=== PATIENT | female | born 1965 | race Caucasian/White ===

== ENCOUNTER 2017-07-06 13:42 | Inpatient (IN) | payer SELFPAY ==
--- NOTE | 2017-07-06 14:33 | CT ---
CT BRAIN: 07/06/2017 PROVIDED CLINICAL HISTORY: Right arm numbness. Right facial numbness. Headache. Expressive aphasia. COMPARISON: None. FINDINGS: The ventricular system appears normal in size and morphology. There is no evidence for intracranial hemorrhage or mass effect. Age indeterminate lacunar infarction involving the left caudate head. Th e extracranial soft tissues and osseous structures demonstrate no acute findings. Small area of ecch ymosis involving the right high parietal region. IMPRESSION: 1. No evidence for intracranial hemorrhage or mass effect. 2. Age indeterminate lacunar infarction involving the left caudate head. POS: [facility]
[2017-07-06 14:46] LABS: ALT (SGPT) 14 U/L (8-55); AST (SGOT) 11 U/L (5-34); Albumin 4.3 g/dL (3.5-5.0); Alkaline Phosphatase 63 U/L (40-150); Anion Gap 10 mmol/L (10-20); BUN (Urea Nitrogen) 17 mg/dL (9.8-20.1); Bilirubin, Total 0.4 mg/dL (0.2-1.2); CK (CPK) 36 U/L (29-168); Calc. Creatinine Clearance 0 mL/min (70-130); Calcium 9.5 mg/dL (7.8-10.44); Carbon Dioxide 24 mmol/L (22-29); Chloride 108 mmol/L (98-107); Estimated GFR-MDRD Greater than 90; Globulin 2.7 g/dL (2.4-3.5); Glucose 171 mg/dL (70-105); Potassium 3.9 mmol/L (3.5-5.1); Sodium 138 mmol/L (136-145)
[2017-07-06 14:50] LABS: CKMB 0.7 ng/mL (0-6.6); Troponin I Less than 0.010 ng/mL (< 0.028)
[2017-07-06 15:14] LABS: Bilirubin Negative (Negative); Blood, Urine Large (Negative); Clarity CLEAR (Clear); Glucose, Urine (Dipstick) Negative (Negative); Leukocyte Negative (Negative); Nitrite Negative (Negative); Protein, Urine (Dipstick) Negative (Neg-Trace); Specific Gravity, Urine 1.021 (1.002-1.036); Urobilinogen 0.2 mg/dL (0.2-1.0)
[2017-07-06 15:23] LABS: Bacteria/HPF None Seen HPF (None Seen); Hyaline Casts/LPF NONE SEEN LPF (0-3 Hyaline); RBC/HPF 21-50 HPF (0-3); Squamous Epithelial 0-3 HPF (0-3); WBC/HPF 0-3 HPF (0-3)
[2017-07-06 15:28] LABS: Amphetamine Not Detected (NotDetected); Barbiturates Screen Not Detected (NotDetected); Benzodiazepine Screen Not Detected (NotDetected); Cocaine Metabolite Screen Not Detected (NotDetected); Medtox Control Line Valid? VALID (VALID); Medtox Reader # READER 1; Methadone Not Detected (NotDetected); Methamphetamine Not Detected (NotDetected); Opiate Screen Not Detected (NotDetected); Oxycodone Screen Not Detected (NotDetected); Phencyclidine (PCP) Not Detected (NotDetected); THC/Cannabinoid Screen Not Detected (NotDetected); Tricyclic Screen Not Detected (NotDetected)
[2017-07-06 15:50] LABS: Prothrombin Time 12.8 SEC (12.0-14.7)
[2017-07-06] MEDS ORDERED: Aspirin 325 MG TAB ONE (16:01)
[2017-07-06 16:38] LABS: #Basophils 0.1 thou/uL (0.0-0.2); #Eosinphils 0.2 thou/uL (0.0-0.7); #Lymphocytes 2.6 thou/uL (1.20-3.40); #Monocytes 0.5 thou/uL (0.11-0.59); #Neutrophils 5.7 thou/uL (1.40-6.50); %Basophils 0.7 % (0.0-1.0); %Eosinophils 2.4 % (0.0-10.0); %Lymphocytes 28.3 % (21.0-51.0); %Monocytes 5.2 % (0.0-10.0); %Neutrophils 63.4 % (42.0-75.0); Hemoglobin 14.2 g/dL (12.0-16.0); Mean Corpuscular HGB CONC 32.4 g/dL (32.0-36.0); Mean Corpuscular Hemoglobin 27.7 pg (27.0-31.0); Mean Corpuscular Volume 85.5 fl (81.0-99.0); Platelet Count 315 thou/uL (130-400); Red Blood Cell (RBC) Count 5.12 mill/uL (4.20-5.40)
[2017-07-06] MEDS ORDERED: Ondansetron HCl/PF 4 MG/2 ML Vial IVP PRN ×2 (17:49→17:58)
[2017-07-06] MEDS ORDERED: Acetaminophen 325 MG TAB PO PRN ×2 (17:49→17:58)
[2017-07-06] MEDS ORDERED: Ondansetron ODT 4 MG TAB SL PRN (17:49)
[2017-07-06] MEDS ORDERED: Bisacodyl 5 MG TAB PO PRN (17:58)
[2017-07-06] MEDS ORDERED: HumaLOG 300 UNITS/3 ML VIAL SC PRN (17:58)
[2017-07-06] MEDS ORDERED: Mag-Al 1200 mg/1200 mg/30 ML UDCUP PO PRN (17:58)
[2017-07-06] MEDS ORDERED: Senokot 8.6 MG TAB PO PRN (17:58)
[2017-07-06] MEDS ORDERED: Dextrose 5% in Water 1,000 ML IV PRN (17:58)
[2017-07-06] MEDS ORDERED: Dextrose 50% Abboject 50 ML SYRINGE SLOW IVP PRN (17:58)
[2017-07-06] MEDS ORDERED: hydrALAZINE 20 MG/ML VIAL SLOW IVP PRN (17:58)
[2017-07-06] MEDS ORDERED: Calcium Carbonate 500 MG ChewTAB PO PRN (17:58)
[2017-07-06 18:09] VITALS: BMI 33.7
--- NOTE | 2017-07-06 19:21 | ULT ---
BILATERAL CAROTID DUPLEX ULTRASOUND INCLUDING COLOR AND SPECTRAL DOPPLER IMAGIN07/06/17 HISTORY: 52-year-old female with doctor's order indicating CVA, followup right arm numbness, right facial numb ness, headache and expressive aphasia. There is bilateral visual plaque in the distal CCAs and particularly the left proximal ICA. PSV right ICA 73 cm/s. EDV 29 cm/s. ICA/CCA ratio of 0.9. PSV left ICA 63 cm/s. EDV 30 cm/s. ICA/CCA ratio of 0.6. Vertebral flow is antegrade. IMPRESSION: Visual plaque bilaterally, evidence for carotid artery arteriovascular disease. No hemodynamically si gnificant stenosis. POS: [facility]
[2017-07-06] MEDS: Atorvastatin Calcium 20 MG TAB PO SCH (20:43)
[2017-07-07 06:03] LABS: Eosinophils 2 % (0-10); Lymphocytes 31 % (21-51); MDiff Complete? YES; Mean Corpuscular HGB CONC 33.3 g/dL (32.0-36.0); Mean Corpuscular Hemoglobin 27.4 pg (27.0-31.0); Mean Corpuscular Volume 82.4 fl (81.0-99.0); Mean Platelet Volume 6.3 fL (7.4-10.4); Monocytes 5 % (0-10); Neutrophil 58 % (42-75); Platelet Count 296 thou/uL (130-400); RBC Distribution Width 11.8 % (11.5-14.5); Reactive Lymphocytes 4 % (0-10); Red Blood Cell (RBC) Count 4.75 mill/uL (4.20-5.40); White Blood Cell (WBC) Count 8.1 thou/uL (4.8-10.8)
[2017-07-07 06:07] LABS: Cardiac Risk 4.3 (Less than 4.5)
[2017-07-07 06:07] LABS: Anion Gap 11 mmol/L (10-20); BUN (Urea Nitrogen) 14 mg/dL (9.8-20.1); Calc. Creatinine Clearance 159 mL/min (70-130); Carbon Dioxide 24 mmol/L (22-29); Chloride 106 mmol/L (98-107); Estimated GFR-MDRD Greater than 90; Glucose 161 mg/dL (70-105); Potassium 3.9 mmol/L (3.5-5.1); Sodium 137 mmol/L (136-145)
[2017-07-07] MEDS: HumaLOG 300 UNITS/3 ML VIAL SC PRN ×2 (06:48→12:45)
--- NOTE | 2017-07-07 07:54 | HP ---
PRIMARY CARE PHYSICIAN: Sofia Beasley M.D. CHIEF COMPLAINT: Difficulty with her speech as well as weakness of the hand with numbness and tingli ng. HISTORY OF PRESENTING ILLNESS: Ms. Beauchamp is a very pleasant 52-year-old female with past me dical history of hypertension and diabetes non-insulin dependent, who presented to the emergency room with above-mentioned complaint. History is mainly obtained with the patient herself. Electronic ct dical records have been reviewed. According to Ms. Beauchamp, she has been having symptoms of right hand weakness, numbness and tingling for the last 4 days. She sought care with a chiropractor yesterday which did not help. She thinks that symptoms might have actually gotten worse. She also started to have difficulty finding words since yesterday morning. She thought it would get better, but when it did not; she presented to the ER tod ay. She did take her fiance's aspirin for the last 2 days. Normally, she is not on a daily dose of aspirin. She does take fish oil and nyfe-[id number] CholestOff supplement. She has not been diagno sed with high cholesterol. She denies any weakness of her right forearm or upper arm. She denies an y leg weakness. She denies any difficulty with swallowing. She denies any slurred speech. She rebel es any vision changes. She denies any other recent illnesses otherwise. Upon presentation to the emergency room, she was hemodynamically stable. Her workup included a CT sc an which was unremarkable as well as a 12-lead EKG. Her lab examination did not have any specific ab normality. Her blood sugar is 171. Cardiac enzyme is unremarkable. Urinalysis does showed large bl ood and RBC. Urine drug screen is negative. She is now being admitted to stroke floor for further w orkup. She is now being admitted to stroke floor for further workup and CVA. PAST MEDICAL HISTORY: Hypertension, diabetes non-insulin dependent type 2. PAST SURGICAL HISTORY: None. SOCIAL HISTORY: She is a former smoker, quit more than 10 years ago. No history of drug or alcohol abuse. She is currently engaged and works at [employer] as well as at the [employer]. FAMILY HISTORY: Both of her grandparents had lung cancer, but they were smokers as well. She denies any history of heart attacks or stroke in her family. ALLERGIES: No known medication allergies. CURRENT MEDICATIONS: Lisinopril 20 mg daily, glipizide 5 mg daily, cranberry 500 mg b.i.d., B comple x daily, fish oil 1200 mg daily, iron 325 mg daily, CholestOff 450 mg b.i.d. REVIEW OF SYSTEMS: The following complete review of systems was negative, unless otherwise mentioned in the HPI or below: Constitutional: Weight loss or gain, ability to conduct usual activities. Skin: Rash, itching. Eyes: Double vision, pain. ENT/Mouth: Nose bleeding, neck stiffness, pain, tenderness. Cardiovascular: Palpitations, dyspnea on exertion, orthopnea. Respiratory: Shortness of breath, wheezing, cough, hemoptysis, fever or night sweats. Gastrointestinal: Poor appetite, abdominal pain, heartburn, nausea, vomiting, constipation, or diarr hea. Genitourinary: Urgency, frequency, dysuria, nocturia. Musculoskeletal: Pain, swelling. Neurologic/Psychiatric: Anxiety, depression. Allergy/Immunologic: Skin rash, bleeding tendency. She is still having some word finding difficulty, but reports that it is better than yesterday. Her right hand still seems weak that she is not able to oppose her index finger and thumb and is not able to hold anything properly in her hand. Other than that, it is negative. LABORATORY DATA: CBC is pending at this time. PT, PTT, INR are unremarkable. Serum chemistry shows chloride at 108, blood sugar 171, otherwise unremarkable. CK-MB and troponin normal. Urine drug sc reen normal. Urinalysis shows blood, otherwise unremarkable. CT scan of the brain by my review has no acute intracranial abnormality. She has age indeterminate lacunar infarction involving the left c audate head. PHYSICAL EXAMINATION: VITAL SIGNS: Blood pressure 135/91, pulse of 82, respirations 20, saturating 97% on room air, and te mperature 98.7. GENERAL: No acute distress, awake, alert, oriented x3. She is having trouble finding the words and often is using a different word as she cannot find the right where she is wanting to choose. She is also mixing up her words and has to think a long time before speaking. Otherwise, no acute distress, awake, alert, oriented x3. HEENT: Mucous membrane is moist and pink. No oropharyngeal exudate or erythema. Head is normocepha lic and atraumatic. Pupils are equal, reactive to light and accommodation. Extraocular movement int act. NECK: Supple without any lymphadenopathy, JVD or bruit. CHEST: Clear to auscultation without any wheezing, rales or rhonchi. Rhythm is regular without any murmur, rubs or gallops. ABDOMEN: Soft, nontender, nondistended, positive bowel sounds. EXTREMITIES: Free of any cyanosis, clubbing, or edema. NEUROLOGIC: Her muscle strength in bilateral lower extremities, left arm, forearm and hand is 5/5. Her right hand muscle strength is definitively diminished. She is not able to hold the paper in her hand and it falls easily. It is mainly affecting the opposing action of the thumb and index finger. Her forearm and arm has 5/5 muscle strength in the right arm. She has no cranial nerve deficits. N o sensory deficits. No dysdiadochokinesia. Gait is not checked, but the patient denies any balance issues. SKIN: Free of any rashes or bruises. Feels warm and dry. PSYCHIATRIC: Normal affect. IMPRESSION AND PLAN: 1. Acute cerebrovascular accident. The patient's symptoms are quite consistent with acute cerebrova scular accident with expressive aphasia and right hand weakness. She does have history of hypertensi on and diabetes. At this time, she will be admitted to stroke floor and we will consult Neurology fo r further recommendations. As she does not take any aspirin at home on a regular basis, we will star t her on low dose of aspirin along with statin for now. Check lipid panel and have stroke team evalu ate her including occupational therapist as well as speech therapist. We will also obtain an MRI as well as transthoracic echocardiogram and carotid ultrasound to rule out any occlusions. Also, there is a small possibility that she might have carotid arterial dissection with the chiropractor manipula tion, but her symptoms are not severe enough and are longstanding enough starting before manipulation making this possibility less likely. Nevertheless, she will be admitted on telemetry unit. Frequen t neuro checks will be instituted. 2. History of diabetes mellitus. We will restart her glipizide and add insulin sliding scale, mild . Frequent Accu-Cheks. 3. Hypertension. Restart her lisinopril, but avoid extreme lowering of the blood pressure. We will allow for permissive hypertension. 4. Add deep venous thrombosis and gastrointestinal prophylaxis. DISPOSITION: Ms. Beauchamp is currently being admitted to the hospital for workup of cerebrovascular acci dent. Estimated length of stay at this time is less than two midnights as her symptoms are receding. Further management will depend upon her clinical course.
[2017-07-07] MEDS ORDERED: VITAMIN B COMPLEX PO SCH (09:00)
[2017-07-07] MEDS ORDERED: Lisinopril 20 MG TAB PO SCH ×2 (09:00)
[2017-07-07] MEDS ORDERED: FISH OIL PO SCH (09:00)
[2017-07-07] MEDS ORDERED: Non-Formulary Item 1 EACH (Ferrous Sulfate [Iron] 325 MG) PO SCH (09:00)
[2017-07-07] MEDS ORDERED: EPA PO SCH (09:00)
[2017-07-07] MEDS ORDERED: [UNRECOGNIZED DRUG - REMARK] PO SCH (09:00)
[2017-07-07] MEDS ORDERED: Fish Oil 1,000 MG CAP PO SCH (09:00)
[2017-07-07] MEDS ORDERED: DHA PO SCH (09:00)
[2017-07-07] MEDS: Aspirin 81 mg Enteric Coated Tablet PO SCH (09:06)
[2017-07-07] MEDS: Fish Oil 1,000 MG CAP PO SCH (10:13)
[2017-07-07] MEDS: Ferrous Sulfate 325 MG TAB PO SCH (10:13)
[2017-07-07] MEDS: Stress 600 With Zinc 1 TAB PO SCH (10:15)
[2017-07-07] MEDS: Lisinopril 20 MG TAB PO SCH (10:21)
--- NOTE | 2017-07-07 10:35 | MRI ---
MRI BRAIN WITHOUT CONTRAST: INDICATIONS: TIA. Right arm numbness. Right facial numbness. CORRELATION: CT from 07/06/2017. TECHNIQUE: Multiplanar, multisequential imaging of the brain obtained. FINDINGS: The ventricles have normal size and position. There is abnormal restricted diffusion in the insular cortex on the left, with foci of restricted dif fusion in the left basal ganglia and involving the head of the caudate. There is also a focus of restricted diffusion involving the left parietal cortex, posteriorly, and th ere are numerous small foci of restricted diffusion seen involving the left frontal and parietal jan ex, on both sides of the central sulcus. This primarily appears to involve the precentral gyrus. Th janell numerous foci of restricted diffusion are all within the left middle cerebral artery distribution . There is associated gliosis seen in these regions, best appreciated in the insular cortex, the left b doug ganglia, and the caudate, on the left, and there is early gliosis seen in the precentral gyrus a nd in the left parietal lobe cortex. No evidence of hemorrhage. The intracranial internal carotid arteries show normal flow voids. The proximal middle cerebral etelvina jerson show flow voids, although a lesion in the left M1 segment cannot be excluded on this study. The basilar artery does show a flow void. IMPRESSION: Acute/subacute infarcts involving the left cerebral hemisphere, as described above. The infarcts are in a left middle cerebral artery distribution. POS: [facility]
--- NOTE | 2017-07-07 13:22 | PDOC.PN ---
- Subjective Encounter Start Date: 07/07/17 Encounter Start Time: 13:20 Subjective: still having word finding difficulty and R hand weakness - Objective MAR Reviewed: Yes Vital Signs & Weight: Vital Signs (12 hours) Temp Pulse Pulse Pulse Resp BP BP 07/07/17 11:15 98 F 91 20 07/07/17 10:40 79 80 140/82 150/80 H 07/07/17 08:00 98.0 F 70 16 07/07/17 07:35 98.0 F 70 16 07/07/17 07:20 79 80 116/80 132/82 07/07/17 05:37 98.3 F 79 18 BP Pulse Ox 07/07/17 11:15 171/108 H 98 07/07/17 10:40 07/07/17 08:00 98 07/07/17 07:35 107/65 98 07/07/17 07:20 07/07/17 05:37 117/67 97 Weight Admit Weight 203 lb Weight 203 lb I&O: 07/06/17 07/07/17 07/08/17 06:59 06:59 06:59 Intake Total 480 Balance 480 Result Diagrams: 07/07/17 05:43 07/07/17 03:30 Additional Labs: Accuchecks 07/07/17 07/06/17 07/06/17 11:09 20:40 18:05 POC Glucose 286 H 179 H 92 Radiology Reviewed by me: Yes (MRI-multiple L MCA territory foci of infarctions) Phys Exam - Physical Examination Constitutional: NAD HEENT: PERRLA, moist MMs, sclera anicteric, TM's clear, oral pharynx no lesions , 2+ tonsils Neck: no nodes, no JVD, supple, full ROM Respiratory: no wheezing, no rales, no rhonchi, clear to auscultation bilateral Cardiovascular: RRR, no significant murmur, no rub, gallop Gastrointestinal: soft, non-tender, no distention, positive bowel sounds Musculoskeletal: no edema, pulses present Neurological: normal sensation, moves all 4 limbs expressive aphasia and R hand weakness same as last night Psychiatric: normal affect, A&O x 3 Skin: no rash, normal turgor, cap refill <2 seconds Dx/Plan (1) Acute CVA (cerebrovascular accident) Code(s): I63.9 - CEREBRAL INFARCTION, UNSPECIFIED Status: Acute (2) DM2 (diabetes mellitus, type 2) Status: Chronic (3) HTN (hypertension) Code(s): I10 - ESSENTIAL (PRIMARY) HYPERTENSION Status: Chronic - Plan PT/OT, speech therapy, DVT proph w/SCDs cont ASA,statin.ECHO & neurology recs pending -: cont ISS.monitor BP. on lisinopril. -: avoid rapid lowering of BP * . Review of Systems - Review of Systems Constitutional: negative: fever, chills, sweats, weakness, malaise, other Eyes: negative: Pain, Vision Change, Conjunctivae Inflammation, Eyelid Inflammation, Redness, Other ENT: negative: Ear Pain, Ear Discharge, Nose Pain, Nose Discharge, Nose Congestion, Mouth Pain, Mouth Swelling, Throat Pain, Throat Swelling, Other Respiratory: negative: Cough, Dry, Shortness of Breath, Hemoptysis, SOB with Excertion, Pleuritic Pain, Sputum, Wheezing Cardiovascular: negative: chest pain, palpitations, orthopnea, paroxysmal nocturnal dyspnea, edema, light headedness, other Gastrointestinal: negative: Nausea, Vomiting, Abdominal Pain, Diarrhea, Constipation, Melena, Hematochezia, Other Genitourinary: negative: Dysuria, Frequency, Incontinence, Hematuria, Retention , Other Musculoskeletal: negative: Neck Pain, Shoulder Pain, Arm Pain, Back Pain, Hand Pain, Leg Pain, Foot Pain, Other Skin: negative: Rash, Lesions, Girish, Bruising, Other Neurological: Weakness, Change in Speech - Medications/Allergies Allergies/Adverse Reactions: Allergies Allergy/AdvReac Type Severity Reaction Status Date / Time No Known Allergies Allergy Verified 07/06/17 18:11 Medications: Current Medications Acetaminophen (Tylenol) 650 mg PO Q4H PRN PRN Reason: Headache/Fever or Pain Al Hydroxide/Mg Hydroxide (Maalox) 30 ml PO Q6H PRN PRN Reason: Heartburn or Indigestion Aspirin (Ecotrin) 81 mg PO DAILY [facility] Last Admin: 07/07/17 09:06 Dose: 81 mg Atorvastatin Calcium (Lipitor) 20 mg PO HS [facility] Last Admin: 07/06/17 20:43 Dose: 20 mg Bisacodyl (Dulcolax) 10 mg PO DAILYPRN PRN PRN Reason: Constipation Calcium Carbonate (Tums) 1,000 mg PO Q4H PRN PRN Reason: Heartburn or Indigestion Dextrose/Water (Dextrose 50%) 25 gm SLOW IVP PRN PRN PRN Reason: Hypoglycemia Ferrous Sulfate (Feosol) 325 mg PO DAILY [facility] Last Admin: 07/07/17 10:13 Dose: 325 mg Fish Oil (Fish Oil) 1,000 mg PO DAILY [facility] Last Admin: 07/07/17 10:13 Dose: 1,000 mg Glipizide (Glucotrol Xl) 5 mg PO QPM [facility] Last Admin: 07/06/17 20:43 Dose: 5 mg Glucagon (Glucagon) 1 mg IM PRN PRN PRN Reason: Hypoglycemia Hydralazine HCl (Apresoline) 10 mg SLOW IVP Q4H PRN PRN Reason: BP > 180/90 Dextrose/Water (D5w) 1,000 mls @ 0 mls/hr IV .Q0M PRN; As Directed PRN Reason: Hypoglycemia Insulin Human Lispro (Humalog) 0 units SC .MILD SLIDING SCALE PRN PRN Reason: Mild Correctional Scale Last Admin: 07/07/17 12:45 Dose: 4 unit Insulin Human Lispro (Humalog) 0 units SC .BEDTIME SLIDING SC PRN PRN Reason: Bedtime Correctional Scale Lisinopril (Zestril) 20 mg PO DAILY [facility] Last Admin: 07/07/17 10:21 Dose: Not Given Multivitamins/Zinc (Stress 600 With Zinc) 1 tab PO DAILY [facility] Last Admin: 07/07/17 10:15 Dose: 1 tab (Cranberry Fruit Extract [Cranberry] 500 Mg) 500 mg PO BID [facility] Non-Formulary Medication (Plant Stanol Es [Cholest Off]) 450 mg PO DAILY [facility] Ondansetron HCl (Zofran) 4 mg IVP Q6H PRN PRN Reason: Nausea/Vomiting Senna (Senokot) 2 tab PO HSPRN PRN PRN Reason: Constipation Sodium Chloride (Flush - Normal Saline) 10 ml IVF PRN PRN PRN Reason: Saline Flush
[2017-07-07] MEDS ORDERED: ISOVUE-370 76%-LOCM 1 ML ONE (15:01)
[2017-07-07] MEDS: Atorvastatin Calcium 20 MG TAB PO SCH (20:16)
--- NOTE | 2017-07-07 20:28 | CT ---
CT ANGIO OF NECK WITH CONTRAST: 07/07/17 Multiple axial tomograms obtained through the neck with IV enhancement and arterial phase following a [facility] protocol with multiplanar reconstruction and 3D postprocessing. INDICATIONS: Left cerebral hemisphere stroke. FINDINGS: No evidence of atherosclerotic disease or stenosis at the origin of the arch vessels. The right common carotid artery is unremarkable with no significant atherosclerotic change. The carot id bifurcation on the right is unremarkable. The right ICA is mildly tortuous but no significant athe rosclerotic disease or stenosis identified. The intracranial right internal carotid artery is patent with no focal stenosis seen through the cavernous segment. The left common carotid is patent with no evidence of significant stenosis or atherosclerotic disease . The left carotid bifurcation is patent with no significant atherosclerotic disease. The left wedding planning internship al carotid artery is patent with no evidence of significant stenosis. The intracranial left internal carotid artery appears patent through the cavernous portion. The vertebral arteries are patent and symmetric. The visualized basilar artery is unremarkable. IMPRESSION: No evidence of significant extracranial carotid artery stenosis. POS: [facility]
[2017-07-07 20:40] LABS: Prothrombin Time 13.8 SEC (12.0-14.7)
[2017-07-07 20:46] LABS: PTT 32.4 SEC (22.9-36.1)
[2017-07-08] MEDS: Ferrous Sulfate 325 MG TAB PO SCH (08:37)
[2017-07-08] MEDS: Aspirin 81 mg Enteric Coated Tablet PO SCH (08:37)
[2017-07-08] MEDS: Lisinopril 20 MG TAB PO SCH (08:37)
[2017-07-08] MEDS: Fish Oil 1,000 MG CAP PO SCH (08:37)
[2017-07-08] MEDS: Stress 600 With Zinc 1 TAB PO SCH (08:42)
--- NOTE | 2017-07-08 09:48 | CON ---
DATE OF CONSULTATION: 07/07/2017 REFERRING PROVIDER: Ria Del Castillo MD REASON FOR CONSULTATION: Expressive aphasia. HISTORY OF PRESENT ILLNESS: Ms. Beauchamp is a pleasant 52-year-old female, who has been consul rosemarie for evaluation of expressive aphasia. Her fiance was at bedside. She reports that about 3-4 day s ago, she had noticed numbness and heaviness in her right upper extremity, which she chalked it up a s being slipped on a wrong way. She did not seek any medical attention at that time. She noted that on Wednesday while talking, she was having some difficulty with getting her words out. She was having difficulty with expressing herself. She felt that it was just a brain fog that she had in the past a nd did not again seek any medical attention. Today, she noted significant difficulty with talking an d speech, which prompted her to present to her primary care physician on yesterday, who prompted her to go to the emergency room. She currently denies any headache, chest pain, palpitation, vision alcantar ges, diplopia, ptosis, difficulty with balance. She does have numbness on the right perioral and per iorbital region, as well as some numbness in the right arm. PAST MEDICAL HISTORY: Significant for hypertension and diabetes. PAST SURGICAL HISTORY: None significant. SOCIAL HISTORY: She is a former smoker, quit more than 10 years ago. She denies alcohol use. She d enies illicit drug use. She is currently engaged and currently employed at [employer]. FAMILY HISTORY: Significant for lung cancer in both grandparents. CURRENT MEDICATIONS: Please review MAR. ALLERGIES: No known drug allergies. REVIEW OF SYSTEMS: As mentioned in above HPI, otherwise negative. PHYSICAL EXAMINATION: VITAL SIGNS: Blood pressure of 132/79, pulse of 77, temperature of 98.1, respirations of 16, O2 sats 98% on room air. GENERAL: Well-developed, well-nourished female in no apparent distress. RESPIRATORY: Clear to auscultation bilaterally. CARDIOVASCULAR: Regular rate and rhythm. NEUROLOGIC: Mental status: The patient is awake, alert, oriented x3. Speech and language, moderate expressive aphasia noted. Cranial nerves: Pupils are 3 mm and reactive. Visual miramontes are intact. Extraocular muscles are intact. No nystagmus is noted. Face is symmetric. Tongue and uvula are m idline. Motor exam showed normal tone and bulk with a 5/5 strength in both upper and lower extremiti es. Sensory: Sensation is intact and symmetric. Deep tendon reflexes, 2+ reflexes in both upper an d lower extremities. Babinski: Plantar responses flexion bilaterally. Coordination is intact to fi [id number] and finger tapping bilaterally. LABORATORY DATA: Reviewed, which included CBC, coag panel, CMP, lipid profile, urinalysis, and urine drug screen, which is significant for glucose of 286, total cholesterol 156, LDL of 100, HDL of 36, and triglycerides of 102, otherwise unremarkable. IMAGING STUDIES: MRI brain without contrast was reviewed, which showed acute left MCA distribution i schemic infarct. Carotid Doppler results were reviewed, which showed visualized plaque bilaterally w ithout any hemodynamically significant stenosis. IMPRESSION: 1. Left middle cerebral artery distribution ischemic infarct. 2. Carotid artery stenosis. 3. Hypertension. 4. Diabetes. 5. Expressive aphasia converted to #1. ASSESSMENT AND PLAN: Ms. Beauchamp is a pleasant 52-year-old female, who presented with 4-day h istory of expressive aphasia. She was found to have acute to subacute left middle cerebral artery di stribution ischemic infarct. I have reviewed her carotid Doppler results, which showed plaques on angelic th sides without any hemodynamically significant stenosis. I will recommend obtaining CT angiogram o f the neck for further evaluation. I will recommend starting her on Plavix 75 mg daily for secondary stroke prevention. I will also obtain hypercoagulation panel. I will also recommend obtaining green sesophageal echocardiogram. If the transthoracic echocardiogram is normal, she will need outpatient speech therapy. Once the workup is done, she is okay to be discharged from my standpoint. Thank you for the consultation.
--- NOTE | 2017-07-08 13:30 | PDOC.PN ---
- Subjective Encounter Start Date: 07/08/17 Encounter Start Time: 13:28 Subjective: much better today.speech has impoved.no muscle weakness - Objective MAR Reviewed: Yes Vital Signs & Weight: Vital Signs (12 hours) Temp Pulse Resp BP Pulse Ox 07/08/17 12:15 98.1 F 109 H 16 133/84 98 07/08/17 08:30 97.7 F 70 15 07/08/17 07:07 97.7 F 70 15 143/82 H 99 07/08/17 03:06 98.1 F 78 16 131/78 97 Weight Admit Weight 203 lb Weight 203 lb I&O: 07/07/17 07/08/17 07/09/17 06:59 06:59 06:59 Intake Total 480 560 Balance 480 560 Result Diagrams: 07/07/17 05:43 07/07/17 03:30 Additional Labs: Accuchecks 07/08/17 07/08/17 07/07/17 11:11 06:03 20:48 POC Glucose 311 H 150 H 167 H 07/07/17 16:58 POC Glucose 88 Laboratory Tests 07/07/17 07/07/17 05:43 20:25 Triglycerides 102 Cholesterol 156 LDL Cholesterol, Calc 100 HDL Cholesterol 36 Homocysteine 5.75 Phys Exam - Physical Examination Constitutional: NAD HEENT: PERRLA, moist MMs, sclera anicteric, oral pharynx no lesions Neck: no nodes, no JVD, supple, full ROM Respiratory: no wheezing, no rales, no rhonchi, clear to auscultation bilateral Cardiovascular: RRR, no significant murmur, no rub, gallop Gastrointestinal: soft, non-tender, no distention, positive bowel sounds Musculoskeletal: no edema, pulses present Neurological: non-focal, normal sensation, moves all 4 limbs Psychiatric: normal affect, A&O x 3 Skin: no rash Dx/Plan (1) Acute CVA (cerebrovascular accident) Code(s): I63.9 - CEREBRAL INFARCTION, UNSPECIFIED Status: Acute (2) DM2 (diabetes mellitus, type 2) Status: Chronic (3) HTN (hypertension) Code(s): I10 - ESSENTIAL (PRIMARY) HYPERTENSION Status: Chronic - Plan plan discussed w/ family, PT/OT, speech therapy, out of bed/ambulate, DVT proph w/SCDs cont ASA w statin for now.ECHO pending. -: Discussed w neurology.? Embolic phenomenon.will get ISREAL -: consult cardiology for same & NPO post MN. -: HD stable.OP rehab if needed ,afetr DC -: Pt agreeable w plan.Hypercoag W/U initiated-will follow * . Review of Systems - Review of Systems Constitutional: negative: fever, chills, sweats, weakness, malaise, other ENT: negative: Ear Pain, Ear Discharge, Nose Pain, Nose Discharge, Nose Congestion, Mouth Pain, Mouth Swelling, Throat Pain, Throat Swelling, Other Respiratory: negative: Cough, Dry, Shortness of Breath, Hemoptysis, SOB with Excertion, Pleuritic Pain, Sputum, Wheezing Cardiovascular: negative: chest pain, palpitations, orthopnea, paroxysmal nocturnal dyspnea, edema, light headedness, other Gastrointestinal: negative: Nausea, Vomiting, Abdominal Pain, Diarrhea, Constipation, Melena, Hematochezia, Other Genitourinary: negative: Dysuria, Frequency, Incontinence, Hematuria, Retention , Other Musculoskeletal: negative: Neck Pain, Shoulder Pain, Arm Pain, Back Pain, Hand Pain, Leg Pain, Foot Pain, Other Skin: negative: Rash, Lesions, Girish, Bruising, Other Neurological: negative: Weakness, Numbness, Incoordination, Change in Speech, Confusion, Seizures, Other - Medications/Allergies Allergies/Adverse Reactions: Allergies Allergy/AdvReac Type Severity Reaction Status Date / Time No Known Allergies Allergy Verified 07/06/17 18:11 Medications: Current Medications Acetaminophen (Tylenol) 650 mg PO Q4H PRN PRN Reason: Headache/Fever or Pain Al Hydroxide/Mg Hydroxide (Maalox) 30 ml PO Q6H PRN PRN Reason: Heartburn or Indigestion Aspirin (Ecotrin) 81 mg PO DAILY [facility] Last Admin: 07/08/17 08:37 Dose: 81 mg Atorvastatin Calcium (Lipitor) 20 mg PO HS [facility] Last Admin: 07/07/17 20:16 Dose: 20 mg Bisacodyl (Dulcolax) 10 mg PO DAILYPRN PRN PRN Reason: Constipation Calcium Carbonate (Tums) 1,000 mg PO Q4H PRN PRN Reason: Heartburn or Indigestion Dextrose/Water (Dextrose 50%) 25 gm SLOW IVP PRN PRN PRN Reason: Hypoglycemia Ferrous Sulfate (Feosol) 325 mg PO DAILY [facility] Last Admin: 07/08/17 08:37 Dose: 325 mg Fish Oil (Fish Oil) 1,000 mg PO DAILY [facility] Last Admin: 07/08/17 08:37 Dose: 1,000 mg Glipizide (Glucotrol Xl) 5 mg PO QPM [facility] Last Admin: 07/07/17 20:16 Dose: 5 mg Glucagon (Glucagon) 1 mg IM PRN PRN PRN Reason: Hypoglycemia Hydralazine HCl (Apresoline) 10 mg SLOW IVP Q4H PRN PRN Reason: BP > 180/90 Dextrose/Water (D5w) 1,000 mls @ 0 mls/hr IV .Q0M PRN; As Directed PRN Reason: Hypoglycemia Insulin Human Lispro (Humalog) 0 units SC .MILD SLIDING SCALE PRN PRN Reason: Mild Correctional Scale Last Admin: 07/07/17 12:45 Dose: 4 unit Insulin Human Lispro (Humalog) 0 units SC .BEDTIME SLIDING SC PRN PRN Reason: Bedtime Correctional Scale Lisinopril (Zestril) 20 mg PO DAILY [facility] Last Admin: 07/08/17 08:37 Dose: 20 mg Multivitamins/Zinc (Stress 600 With Zinc) 1 tab PO DAILY [facility] Last Admin: 07/08/17 08:42 Dose: 1 tab Ondansetron HCl (Zofran) 4 mg IVP Q6H PRN PRN Reason: Nausea/Vomiting Senna (Senokot) 2 tab PO HSPRN PRN PRN Reason: Constipation Sodium Chloride (Flush - Normal Saline) 10 ml IVF PRN PRN PRN Reason: Saline Flush
[2017-07-08] MEDS: HumaLOG 300 UNITS/3 ML VIAL SC PRN ×2 (14:37→17:44)
[2017-07-08] MEDS ORDERED: Loratadine 10 MG TAB PO PRN (17:45)
[2017-07-08] MEDS: Atorvastatin Calcium 20 MG TAB PO SCH (20:27)
--- NOTE | 2017-07-08 20:57 | CON ---
DATE OF CONSULTATION: 07/08/2017 REASON FOR CONSULTATION: Acute cerebrovascular accident. HISTORY OF PRESENT ILLNESS: Ms. Beauchamp is a very pleasant 52-year-old white female who comes to the [facility] for inability to talk and weakness. She was having expressive aphasia and weakness of the rig ht arm and leg. She was admitted for evaluation of possible stroke. An MRI of the brain was done an d it showed an MCA distribution acute and subacute stroke, so a CVA workup was begun. Neurology eval uated the patient and because of her young age, they are requesting a transesophageal echo as her tra nsthoracic echo was unremarkable and unrevealing for a stroke, and also requesting a LINQ for cryptog enic CVA if the ISREAL is unremarkable. On my evaluation, Ms. Beauchamp is doing much better. Her speech is almost back to normal. I cannot tell that she has any inability in her speech, although she feels that she is not quite back to her basel ine. Her weakness is almost completely gone as well. PAST MEDICAL HISTORY: 1. Hypertension. 2. Diabetes. PAST SURGICAL HISTORY: None. SOCIAL HISTORY: Quit smoking 10 years ago. Denies any alcohol or drug use. FAMILY HISTORY: Noncontributory. OUTPATIENT MEDICATIONS: 1. Plant benedict. 2. Fish oil. 3. Iron sulfate. 4. Vitamin B complex. 5. Cranberry juice. 6. Glipizide 5 mg at bedtime. 7. Lisinopril 20 mg a day. ALLERGIES: No known drug allergies. REVIEW OF SYSTEMS: A 12-point review of systems was done and is all negative unless stated in the hi story of present illness. PHYSICAL EXAMINATION: VITAL SIGNS: Temperature 98.1, pulse 80, respiratory rate 15, saturating 98% on room air, blood pres sure 129/73. GENERAL: Awake, alert, oriented x3, in no distress. HEENT: Normocephalic, atraumatic. NECK: Supple. LUNGS: Clear. CARDIOVASCULAR: S1, S2. No S3 or S4. No murmurs or rubs. ABDOMEN: Soft. Positive bowel sounds. EXTREMITIES: No edema. SKIN: Warm and dry. NEUROLOGIC: Her speech to me seems back to normal and her strength is not quite but almost completel y back to normal. I would say her strength in the right arm is pretty much what I would expect for h er age; however, her left arm is a little bit stronger and she is right-handed. LABORATORY DATA: Laboratory work was reviewed. CBC was unremarkable. Coags were reviewed. Hand Packer/Packager jerson were reviewed, which were unremarkable. GFR is greater than 90. Triglycerides 102, cholesterol 156, LDL of 100, HDL of 36. Homocysteine was negative. Troponins were negative x1. EKG was reviewed, normal sinus rhythm, no ischemic changes. No arrhythmias. Telemetry was reviewed, no arrhythmias. Echocardiogram transthoracic was reviewed, normal LV function, grade I/III diastolic dysfunction, mil d TR, mild MR, and some mitral annular calcification. MRI of the brain and CT of the brain were revi ewed. CT angio of the brain showed no evidence of significant extracranial carotid artery stenosis. ASSESSMENT: 1. Acute cerebrovascular accident. 2. Cryptogenic stroke. PLAN: 1. Since transthoracic echo was unrevealing as far as stroke is concerned, we will plan on doing a t ransesophageal echo with agitated saline study. 2. If this is negative, Dr. Huffman would like me to place a LINQ for cryptogenic stroke and evaluation of possible atrial fibrillation/atrial flutter. 3. I have spoken with Ms. Beauchamp about risks and benefits of both ISREAL and LINQ insertion and she agree s to proceed. 4. Thank you for letting us participate in the care of your patient. We will plan on doing these pr ocedures tomorrow morning.
[2017-07-09] MEDS ORDERED: Lidocaine 1% w/Epinephrine 1:200K 30 ML VIAL ONE (08:30)
[2017-07-09] MEDS ORDERED: PHENYLEPHRINE-NS 100 MCG/ML 10 ML SYRINGE ONE (09:50)
[2017-07-09] MEDS ORDERED: PROPOFOL 40 ML ONE (09:50)
[2017-07-09] MEDS ORDERED: Promethazine HCl 25 MG/ML VIAL SLOW IVP PRN (09:59)
[2017-07-09] MEDS ORDERED: Ondansetron HCl/PF 4 MG/2 ML Vial IVP PRN (09:59)
[2017-07-09] MEDS ORDERED: Promethazine HCl 25 MG/ML VIAL IM PRN (09:59)
[2017-07-09] MEDS ORDERED: PROPOFOL 20 ML ONE (10:41)
[2017-07-09 11:21] VITALS: BP 117/80; TEMP 97.4
[2017-07-09] MEDS: Lisinopril 20 MG TAB PO SCH (11:33)
[2017-07-09] MEDS: Aspirin 81 mg Enteric Coated Tablet PO SCH (11:39)
[2017-07-09] MEDS: Ferrous Sulfate 325 MG TAB PO SCH (11:39)
[2017-07-09] MEDS: Stress 600 With Zinc 1 TAB PO SCH (11:40)
[2017-07-09] MEDS: Fish Oil 1,000 MG CAP PO SCH (11:40)
[2017-07-09 12:14] LABS: Protein C Activity 133 % (78-152)
--- NOTE | 2017-07-09 14:10 | ECHO ---
TRANSESOPHAGEAL ECHOCARDIOGRAM: DATE OF SERVICE: 07/09/17 REASON FOR STUDY: Cryptogenic CVA. DETAILS: The anesthesia department provided anesthesia for the patient. Please see their notes for details. Af ter adequate sedation was achieved, the ISREAL probe was inserted into the patient's mouth and into the esophagus successfully. Multiplanar views were then obtained. FINDINGS: Left ventricle is normal size, normal wall thickness. Systolic function is normal. EF estimated at 55-60 percent. No regional wall motion abnormalities. Left atrium is mildly dilated. Right atrium is normal size. Right ventricle is normal size with normal systolic function. Interatrial septum appears to be intact by color Doppler and by agitated saline study. There is a lip omatous hypertrophy of the interatrial septum. Aortic valve has three cusps. No stenosis or regurgitation. Mitral valve is structurally normal. No stenosis. Mild regurgitation. Tricuspid valve is structurally normal. There is mild TR. Pulmonary valve is structurally normal. No stenosis or regurgitation. Aortic root is normal size with no evidence of atherosclerotic disease. No dissections. Thoracic descending aorta has Grade II out of V atherosclerotic disease. No flailing masses or throm bus. Left atrial appendage is large with normal velocities and normal flow. No evidence of thrombus. CONCLUSIONS: 1. Normal systolic function, EF of 55-60%. 2. Mild left atrial enlargement. 3. Mild MR, mild TR. 4. Grade II out of V atherosclerotic disease of thoracic descending aorta. 5. No intracardiac shunt by agitated saline study. 6. No masses or thrombus in any of the major cardiac chambers.
--- NOTE | 2017-07-09 14:15 | CCL ---
PROCEDURE NOTE: Date: 07/09/17 PROCEDURE: Insertion of permanent cardiac care unit nurse, model MDP LINQ 11, serial #[id number]. REASON FOR PROCEDURE: Cryptogenic CVA. DESCRIPTION OF PROCEDURE: The patient was taken to the cardiac procedural area, and prepped and draped in the usual sterile fas hion. Lidocaine was utilized for local anesthesia. An incision was made at the fourth intercostal spa ce in left pectoral region utilizing the skin puncture tool. The cardiac care unit nurse LINQ was inserted th rough the puncture site with the LINQ insertion tool. Dermabond was then applied to the site in the u sual sterile fashion. RECOMMENDATIONS: 1. Continue monitoring. 2. Follow up in 1 week for wound check.
[2017-07-09] MEDS ORDERED: PROPOFOL 200 MG/20 ML VIAL ONE (15:57)
--- NOTE | 2017-07-09 18:05 | DIS ---
DATE OF ADMISSION: 07/06/2017 DATE OF DISCHARGE: 07/09/2017 CONDITION AT THE TIME OF DISCHARGE: Stable and improved. DISCHARGE DIAGNOSES: 1. Acute left middle cerebral artery distribution of cerebrovascular accident. 2. History of diabetes mellitus. 3. History of hypertension. DISCHARGE MEDICATIONS: New medications: Plavix 75 mg daily, Lipitor 20 mg daily, and resume home me dications as follows lisinopril 20 mg daily, glipizide 5 mg daily, ferrous sulfate 325 mg daily, fish oil daily, and [id number]-[id number] supplements. PROCEDURES DONE IN THE HOSPITAL: Include, 1. CT scan of the brain upon presentation to the hospital, which shows age indeterminate lacunar inf arction involving the left caudate head. 2. Carotid Doppler ultrasound, which shows plaque on both sides without any hemodynamically signific ant stenosis. 3. MRI of the brain which shows multiple foci of acute and subacute infarction along the left cerebr al hemisphere in the left MCA territory. 4. CT angio of the neck, which does not show any extracranial carotid artery stenosis. 5. Transthoracic echocardiogram which shows EF of 60%-65% and grade 1/3 diastolic dysfunction. 6. Transesophageal echocardiogram which was negative for any intracardiac thrombi. 7. Placement of LINQ recorder. INHOUSE CONSULTATIONS: Include, 1. Cardiology, Dr. Yin for ISREAL. 2. Neurology, Dr. Nadia Huffman. HISTORY OF PRESENTING ILLNESS: Ms. Beauchamp is a very pleasant 52-year-old female with past medical hist ory of diabetes and hypertension, who presented to the emergency room with complaints of expressive a phasia and right-sided hand and leg weakness. She has waited about 4 days prior to coming to the [facility] and had a chiropractor manipulator neck for these symptoms without any benefit. Nevertheless, when she came in, she was hemodynamically stable. She was admitted as a stroke workup. She received a full dose aspirin in the emergency room and underwent a CT scan of the brain which showed age inde terminate lacunar infarction. Please see admission history and physical for further details. HOSPITAL COURSE: The patient underwent stroke evaluation and was seen by physical therapist, occupat ional therapist and speech therapist. She had significant improvement in her symptoms over the cours e of her hospitalization. Neurology was consulted and MRI of the brain came back consistent with lef t MCA distribution infarction. This was, however, wide spread with small foci scattered throughout t he left cerebral hemisphere. There was a question of cardiac cause for this and embolization and for this reason, Cardiology was consulted for a transesophageal echocardiogram. A transthoracic echocar diogram done before that was unremarkable. She underwent a ISREAL earlier today which was normal. After discussion with Neurology, it was thought that she would benefit from placement of a LINQ recorder and this was also done by Dr. Yin earlier today. Post-procedure, she is feeling fine and is eager to go home. As per the instructions from [facility], she will be started on Plavix instead of aspirin and continuation of a new statin. Prescri ptions were provided. The patient was seen and examined prior to discharge. PHYSICAL EXAMINATION: VITAL SIGNS: Temperature 97.4, heart rate 84, respirations 16, saturating 96% on room air, blood pre ssure 117/80. GENERAL: No acute distress, awake, alert, and oriented x3. CHEST: Clear to auscultation bilaterally. Rate and rhythm is regular without any murmurs or gallops . NEUROLOGIC: She does have some residual left hand weakness, but her speech has much improved. She was given referral to outpatient rehabilitation at this time as per her request. Prescriptions w ere sent electronically to her pharmacy. Discharge plan was discussed with the patient and her jayshree dewitt and her daughter, who verbalized understanding. Discharge plan was discussed with Cardiology and [facility], and they both have cleared her for discharge at this time. Total time spent in the discharge of this patient 35 minutes including [id number] interaction.
--- NOTE | 2017-07-11 00:26 | EKG ---
Test Reason : Blood Pressure : / mmHG Vent. Rate : 078 BPM Atrial Rate : 078 BPM P-R Int : 162 ms QRS Dur : 082 ms QT Int : 400 ms P-R-T Axes : 045 -35 001 degrees QTc Int : 456 ms Normal sinus rhythm Left axis deviation Abnormal ECG Confirmed by AYDEN MURCIA ([id number]), legal editor MELISSA STODDARD ([id number] on 07/11/2017 12:25:21 AM Referred By: Confirmed By:AYDEN MURCIA
[2017-07-12 08:44] LABS: D-Dimer Test 0.29 *mcg/mL (0.27-0.43)
[2017-07-14 02:12] LABS: Activated Protein C Resistance 2.4 ratio (.); Hexagonal Phospholipid Neut 2 sec (.)
== END 2017-07-09 14:13 | disposition home or self-care (01) | DRG 41 ==
LOC: ERS 13:42 → 2SE 17:29 → OBSVTOIN 17:29
PROVIDERS: ADMIT Internal Medicine; ATTEND Internal Medicine
PROC: 0JH632Z Insertion of Monitoring Device into Chest Subcutaneous Tissue and Fascia, Percutaneous Approach (ICD-10-PCS; principal; 2017-07-09)
PROC: B24BZZ4 Ultrasonography of Heart with Aorta, Transesophageal (ICD-10-PCS; 2017-07-09)
DX: Z79.84 Long term (current) use of oral hypoglycemic drugs; R47.01 Aphasia; I10 Essential (primary) hypertension; Z87.891 Personal history of nicotine dependence; E11.9 Type 2 diabetes mellitus without complications; G81.91 Hemiplegia, unspecified affecting right dominant side; I63.512 Cerebral infarction due to unspecified occlusion or stenosis of left middle cerebral artery
CPT/HCPCS: 33282; 36415; 36416; 70450; 70498; 70551; 80048; 80053; 80061; 80306; 81003; 81015; 81240; 82553; 83090; 84484; 85007; 85025; 85027; 85240; 85300; 85303; 85305; 85307; 85379; 85598; 85610; 85730; 93005; 93306; 93312; 93880; C1764; G8978-GP-CH; G8979-GP-CH; G8980-GP-CH; G8987-GO-CJ; G8988-GO-CH; G9162-GN-CM; G9163-GN-CK; J0360; J2704